=== PATIENT | female | born 1960 | race Caucasian/White ===

== ENCOUNTER 2017-06-08 13:53 | Emergency (ER) | payer MEDICARE, MEDICAID ==
--- NOTE | 2017-06-08 15:09 | UC ---
Throat Pain/Nasal Adithya HPI - HPI Summary HPI Summary: 57 y/o female presents to the urgent care c/o nasal congestion , productive cough, sore throat, fever, chills since this morning. She also has body aches and lower back pain. However she has Hx of back problems and dystonia. She also c/o of fingers with dryness and fissures around nails that is getting infected. she has been taking Tylenol to alleviate symptoms. She has been feeling depressed for the past week since her boyfriend is in a Hospice Dx with Pancreatic CA stage IV. She takes Lorazepam BID for Bipolar Disorder. She denies SOB, chest pain, abdominal pain, urinary problems, saddle anesthesia, fecal or urinary incontinence. Denies suicidal or homicidal ideation, hallucinations or delusions. - History of Current Complaint Chief Complaint: UCGeneralIllness Stated Complaint: BOTH HANDS COMPLAINT,COUGH,ST Time Seen by Provider: 06/08/17 15:08 Hx Obtained From: Patient Hx Last Menstrual Period: JUL 07, 2015, PERIODS ARE BECOMING LESS FREQUENT ?: No Onset/Duration: Gradual Onset, Lasting Hours - this morning Severity: Mild Pain Intensity: 4 - finger fissures Pain Scale Used: 0-10 Numeric Cough: Nonproductive Associated Signs & Symptoms: Positive: Nasal Discharge, Fever - subjective at home, Other - sore throat, body aches, lower back pain - Epiglottits Risk Factors Epiglottis Risk Factors: Negative - Allergies/Home Medications Allergies/Adverse Reactions: Allergies Allergy/AdvReac Type Severity Reaction Status Date / Time Aripiprazole [From Abilify] Allergy Unknown Unknown Verified 06/08/17 15:02 Reaction Details Aspirin Allergy Unknown Unknown Verified 06/08/17 15:02 Reaction Details Carbidopa w/Levodopa Allergy Unknown Unknown Verified 06/08/17 15:02 [From Sinemet] Reaction Details Furosemide [From Lasix] Allergy Unknown Unknown Verified 06/08/17 15:02 Reaction Details Risperidone [From Risperdal] Allergy Unknown Unknown Verified 06/08/17 15:02 Reaction Details Sulfamethoxazole Allergy Unknown Unknown Verified 06/08/17 15:02 w/Trimethoprim Reaction [From Septra] Details Levetiracetam [From Keppra] Allergy Unknown Verified 06/08/17 15:02 Reaction Details Paroxetine [From Paxil] Allergy Unknown Verified 06/08/17 15:02 Reaction Details Sulfa Drugs Allergy Unknown Verified 06/08/17 15:02 Reaction Details PMH/Surg Hx/FS Hx/Imm Hx Previously Healthy: Yes Endocrine History: Diabetes Cardiovascular History: Hypertension Other GI/ History: overactive bladder Psychological History: Bipolar Disorder Other History Of: Negative For: Anticoagulant Therapy - Surgical History Surgical History: Yes Surgery Procedure, Year, and Place: cholecystectomy. carpal tunnel. 2 C- SECTIONS, TONSILS, CERVICAL DYSTONIA(?). D&C, ONCE - Family History Known Family History: Positive: Cardiac Disease, Hypertension, Diabetes Family History: Stroke - Social History Occupation: Unemployed Lives: With Family - 2 sons Alcohol Use: None Substance Use Type: None Smoking Status (MU): Never Smoked Tobacco Household Exposure Type: Cigarettes - Immunization History Most Recent Influenza Vaccination: Fall 2013 Most Recent Tetanus Shot: WIthin last 5 years Most Recent Pneumonia Vaccination: None Review of Systems Constitutional: Fever - subjective at home, Chills, Other - body aches Skin: Negative Eyes: Negative ENT: Sore Throat, Nasal Discharge, Sinus Congestion Respiratory: Cough - productive Cardiovascular: Negative Gastrointestinal: Negative Genitourinary: Negative Motor: Negative Neurovascular: Negative Musculoskeletal: Other: - lower back pain Neurological: Negative Psychological: Negative Is Patient Immunocompromised?: No All Other Systems Reviewed And Are Negative: Yes Physical Exam Triage Information Reviewed: Yes - Additional Comments VITAL SIGNS: Reviewed. GENERAL: Patient is a well developed and nourished female who is sitting comfortable in the examining table. Patient is not in any acute respiratory distress. HEAD AND FACE: No signs of trauma. No ecchymosis, hematomas or skull depressions. No sinus tenderness. EYES: PERRLA, EOMI x 2, No injected conjunctiva, no nystagmus. No photophobia. EARS: Hearing grossly intact. Ear canals and tympanic membranes are within normal limits. MOUTH: Positive pharynx with erythema, exudates, palatal petechiae. B/L tonsillar enlargement with exudate. Uvula in midline. NECK: Supple, trachea is midline, Positive anterior cervical lymphadenopathy, no JVD, no carotid bruit, no c-spine tenderness, neck with full ROM. No meningeal signs, no Kernig's or brudzinskis signs. CHEST: Symmetric, no tenderness at palpation LUNGS: Clear to auscultation bilaterally. No wheezing or crackles. CVS: Regular rate and rhythm, S1 and S2 present, no murmurs or gallops appreciated. ABDOMEN: Soft, non-tender. No signs of distention. No rebound no guarding, and no masses palpated. Bowel sounds are normal. EXTREMITIES: FROM in all major joints, no edema, no cyanosis or clubbing. NEURO: Alert and oriented x 3. No acute neurological deficits. Speech is normal and follows commands. PSYCH: mildly Depressed, quiet, talks about her problems easily, denies any suicidal thoughts or plan. No homicidal thoughts or plan. No signs of psychosis or pressure speech. No tangential speech. SKIN: Dry and warm. Rt and LF distal phalanges around nails with dryness and fissures, tender to palpation. LF #2 distal phalanx with s bigger fissure w/ moderate swolling, erythema and surrounding indisting borders, tender to palpation. No pus or drainage observed. Throat Pain/Nasal Course/Dx - Course Course Of Treatment: 57 y/o female presents to the urgent care c/o nasal congestion , productive cough, sore throat, fever, chills since this morning. She also has body aches and lower back pain. However she has Hx of back problems and dystonia. She also c/o of fingers with dryness and fissures around nails that is getting infected. she has been taking Tylenol to alleviate symptoms. She has been feeling depressed for the past week since her boyfriend is in a Hospice Dx with Pancreatic CA stage IV. She takes Lorazepam BID for Bipolar Disorder. She denies SOB, chest pain, abdominal pain, urinary problems, saddle anesthesia, fecal or urinary incontinence. Denies suicidal or homicidal ideation, hallucinations or delusions.Hx obtained. PE with upper respiratory infection and LF # 2 distal phalanx with cellulitis on examination. Pt with pharyngitis on examination. Rapid strep ordered, result: negative.Influenza A&B ordered: result: negative.Pt Rx Keflex and Bacitracin Oint for the cellulitis and advised to continue taking Tylenol PO to alleviates symptoms. Advised keep wound dry and clean and wear gloves when wahing dishes. Pt also advised to rest, increase fluid intake, eat well and avoid strenuous exercise. If symptoms do not improve or worsen advised to return to the urgent care or f/u with her PCP for further evaluation and treatment. Pt was able to open up to her feeling and felt better. Pt advised to make an appt with [facility] to get help in how to cope with her problems. Pt understood and agreed with plan of care. - Differential Dx/Diagnosis Differential Diagnosis/HQI/PQRI: Influenza, Laryngitis, Mononucleosis, Pharyngitis, Sinusitis, Tonsillitis, URI Provider Diagnoses: 1- Upper respiratory infection. 2- Cellulitis of the Left # 2 distal phalanx. 3- Bipolar disorder Discharge - Discharge Plan Condition: Stable Disposition: HOME Prescriptions: Bacitracin OINTMENT* 1 applic TOPICAL TID #1 tube Benzonatate CAP* [Tessalon 100 MG CAP*] 100 mg PO TID #15 cap Cephalexin CAP* [Keflex CAP*] 500 mg PO QID #28 cap Patient Education Materials: Cellulitis (ED), Upper Respiratory Infection (ED) Referrals: Lorin Goldsmith, [employer] [Primary Care Provider] - 3 Days Additional Instructions: 1-Please take full course of Antibiotic. 2- If redness and swelling doubles in size after 48 hrs of taking antibiotic and fever develops please go to the ER immediately. 3-Wear gloves when washing dishes, keep your hands lubricated at all times and perez wound clean and dry and apply the topical ointment as directed 4-Please F/u with your PCP in 3 days if not improvement of symptoms. 5- Please use saline drops OTC to clear sinuses and take tylenol PO q6-8hrs prn , to alleviate symptoms of upper respiratory infection increase fluidm intake, rest, eat well. 6-Please F/u with [facility] for further counseling and help to cope your emotional problems you are going though now.
[2017-06-08 15:24] VITALS: BP 119/72
== END 2017-06-08 16:30 | disposition home or self-care (01) ==
LOC: UCCORT 13:53
DX: J06.9 Acute upper respiratory infection, unspecified (principal); L03.012 Cellulitis of left finger; F31.9 Bipolar disorder, unspecified; E11.9 Type 2 diabetes mellitus without complications; I10 Essential (primary) hypertension; N32.81 Overactive bladder; Z90.49 Acquired absence of other specified parts of digestive tract; Z88.6 Allergy status to analgesic agent; Z88.2 Allergy status to sulfonamides; Z88.8 Allergy status to other drugs, medicaments and biological substances; Z77.22 Contact with and (suspected) exposure to environmental tobacco smoke (acute) (chronic)
CPT/HCPCS: 87502; 99212; G0463